=== PATIENT | male | born 2000 | race Caucasian/White ===

== ENCOUNTER 2023-12-08 11:30 | Emergency (ER) | payer OTHER, SELFPAY ==
[2023-12-08 11:45] VITALS: BP 119/79; PULSE 93; TEMP 36.9; O2SAT 98; BMI 23.0
--- NOTE | 2023-12-08 12:19 | ED.SKABFB1 ---
HPI - Skin/Abscess/Foreign Bdy General Chief complaint: Skin/Abscess/Foreign Body Stated complaint: POSSIBLE RASH Time Seen by Provider: 12/08/23 12:19 Source: patient Mode of arrival: ambulance History of Present Illness HPI narrative: This 23-year-old here with a rash. Is been present for 3 days. He he says that the rash moves from place to place. There is no pain or associated symptoms such as fevers shakes chills or upper respiratory infections. No known food intake that would have precipitated this. No medication use and no antibiotics. Has not noticed any swelling of his mouth tongue lips or uvula. No wheezing or tightness in his chest. Related Data Home Medications ?Medication ?Instructions ?Recorded ?Confirmed blood-glucose sensor (DexEcowell G6 12/08/23 12/08/23 Sensor device) blood-glucose transmitter (Dexcom 12/08/23 12/08/23 G6 Transmitter device) infusion set for insulin pump 12/08/23 12/08/23 (AutoSoft XC Infusion Set 23 ) insulin aspart U-100 100 unit/mL 1 unit 12/08/23 subcutaneous solution (Novolog U-100 Insulin aspart) Allergies Allergy/AdvReac Type Severity Reaction Status Date / Time No Known Drug Allergies Allergy Verified 12/08/23 11:45 Exam Narrative Exam Narrative: Well-hydrated well-nourished male vital signs are stable airway is patent. His lungs are completely clear with no wheeze rales or rhonchi or coughing. ENT examination shows no swelling of lips tongue uvula or palate. The skin has a very very minimal slightly raised mildly pruritic urticarial rash about the trunk torso and extremities. There is no petechia purpura or other worrisome type dermatological findings today. Constitutional Vital Signs, click to edit/add: Last Vital Signs Temp 98.5 F 12/08/23 11:45 Pulse 93 H 12/08/23 11:45 Resp 18 12/08/23 11:45 BP 119/79 12/08/23 11:45 Pulse Ox 98 12/08/23 11:45 O2 Del Method Room Air 12/08/23 11:45 Course Vital Signs Vital signs: Vital Signs Temperature 98.5 F 12/08/23 11:45 Pulse Rate 93 H 12/08/23 11:45 Respiratory Rate 18 12/08/23 11:45 Blood Pressure 119/79 12/08/23 11:45 Pulse Oximetry 98 12/08/23 11:45 Oxygen Delivery Method Room Air 12/08/23 11:45 Temperature 98.5 F 12/08/23 11:45 Pulse Rate 93 H 12/08/23 11:45 Respiratory Rate 18 12/08/23 11:45 Blood Pressure 119/79 12/08/23 11:45 Pulse Oximetry 98 12/08/23 11:45 Oxygen Delivery Method Room Air 12/08/23 11:45 MDM - Skin/Abscess/Foreign Bdy MDM Narrative Medical decision making narrative: Patient's been taking subtherapeutic doses of Benadryl. Will recommend cold compresses cool baths continuation of steroid and a Medrol pack for what appears to be a mild allergic skin reaction. Discharge Plan Discharge Stand Alone Forms: Portal Instructions Chief Complaint: Skin/Abscess/Foreign Body Clinical Impression: Allergic reaction Patient Disposition: Home, Self-Care Time of Disposition Decision: 12:21 Prescriptions / Home Meds: No Action insulin aspart U-100 [Novolog U-100 Insulin aspart] 100 unit/mL solution 1 unit Patient Comments: Pt monitors BS levels through a dexacom and gives additional coverage if warranted (DME) AutoSoft XC Infusion Set 23 Infusion Set MISCELLANEOUS (DME) Dexcom G6 Sensor Device MISCELLANEOUS (DME) Dexcom G6 Transmitter Device MISCELLANEOUS Print Language: Turkish Additional Instructions: Cold showers/Medrol pack Referrals: Elba Andrade NP [Primary Care Provider] - 1 week
== END 2023-12-08 12:34 | disposition home or self-care (01) ==
PROVIDERS: Emergency Provider Emergency Medicine Emergency Medical Services; PCP Nurse Practitioner Family
DX: T78.40XA Allergy, unspecified, initial encounter (principal); X58.XXXA Exposure to other specified factors, initial encounter
CPT/HCPCS: 99283